=== PATIENT | male | born 1970 | race Caucasian/White ===

== ENCOUNTER 2021-04-20 11:44 | Emergency (ER) | payer BC ==
--- NOTE | 2021-04-20 12:10 | EDM.PDOC ---
ED HPI GENERAL MEDICAL PROBLEM - General Chief Complaint: Fever Stated Complaint: RUNNING FEVER ALL WEEKEND Time Seen by Provider: 04/20/21 12:05 Source of Information: Reports: Patient History Limitations: Reports: No Limitations - History of Present Illness INITIAL COMMENTS - FREE TEXT/NARRATIVE: HISTORY AND PHYSICAL: History of present illness: Patient is a 50-year-old male who presents to the emergency room with complaints of fever, sinus pressure/headache, decreased appetite, nausea and fatigue over the past 3 to 4 days. states that she had some leftover amoxicillin and has been giving him this over the past 2 days although he has not felt any improvement. Temperature at home has been running to 101 - 103F, has been alternating Tylenol and ibuprofen. Had an infrequent cough with mild shortness of breathe, but feels that has improved. Patient denies any change in vision, syncope or near syncope. Denies any chest pain, back pain or hemoptysis. Denies any abdominal pain, vomiting, diarrhea, constipation or dysuria. Has not noted any blood in urine or stool. Patient has been eating and drinking appropriately. Review of systems: As per history of present illness and below otherwise all systems reviewed and negative. Past medical history: As per history of present illness and as reviewed below otherwise noncontributory. Surgical history: As per history of present illness and as reviewed below otherwise noncontributory. Social history: See social history for further information Family history: As per history of present illness and as reviewed below otherwise noncontributory. Physical exam: General: Well developed and well nourished 50-year-old male. Alert and orientated x 3. Nontoxic in appearance and in no acute distress. Vital signs are stable and have been reviewed by me. Nursing notes were reviewed. HEENT: Atraumatic, normocephalic, pupils equal and reactive bilaterally, negative for conjunctival pallor or scleral icterus, mucous membranes moist, frontal maxillary sinus tenderness bilaterally, TMs normal bilaterally, throat clear, neck supple, nontender, trachea midline. No drooling or trismus noted. No meningeal signs. No hot potato voice noted. Lungs: Clear to auscultation bilaterally. No wheezes, rales, or rhonchi. Chest nontender. Normal work of breathing, no accessory muscles used. Heart: S1S2, regular rate and rhythm without overt murmur, gallops, or rubs. No JVD. No peripheral edema Abdomen: Soft, nondistended, nontender. Normoactive bowel sounds. Negative for masses or costovertebral tenderness. Skin: Intact, warm, dry. No lesions or rashes noted. Hematologic: No petechiae or purpra. Mucosa appropriate color and normal nail bed color and refill. Extremities: Atraumatic, moves all extremities per self without difficulty or deficits, negative for cords or calf pain. Neurovascular unremarkable. Neuro: Awake, alert, oriented. Cranial nerves II through XII unremarkable. Cerebellum unremarkable. Motor and sensory unremarkable throughout. Exam nonfocal. Psychiatric: Mood and affect are appropriate. Normal thought process. Answering questions appropriately. Notes: *This patient was seen and evaluated during the 2019 SARS-CoV-2 novel coronavirus pandemic period. Community viral transmission is ongoing at time of this encounter and the emergency department is operating under pandemic response procedures. Patient is a 50-year-old male who presents to the emergency room with complaints of fever, headache, decreased appetite with nausea and generalized fatigue. has been treating him with some leftover amoxicillin with concerns of him having a sinus infection. She states she has been giving him Tylenol and ibuprofen to help manage his fevers but has been unsuccessful. Patient's phys ical exam is unremarkable Chest x-ray is unremarkable. Labs show mild derangement with likely dehydration. He did receive IV fluids and medications while here. I have talked with the patient about today's findings, in addition to providing specific details for plan of care. Reassessment at the time of disposition demonstrates that the patient is in no acute distress. The patient is stable fo r discharge, counseling was provided and we discussed in great detail signs and symptoms that would prompt them to return to the Emergency Department. Medication, follow up and supportive care measures were reviewed and discussed. Voices understanding and is agreeable to plan of care. Denies any further questions or concerns at this time. Diagnostics: CBC, CMP, COVID, UA (cancelled) Therapeutics: IV fluids, Toradol, Zofran Prescription: Augmentin Impression: Sinusitis Viral illness Plan: 1. You were evaluated today on an emergent basis. Please take the antibiotic as prescribed. Small frequent sips of fluids to prevent dehydration. BRAT diet (bananas, rice, applesauce, toast) and advance as tolerated. 2. You can alternate Tylenol and ibuprofen as needed for pain and fever management. 3. We encourage you to follow up with your primary care provider and/or recommended specialist in the next few days for re-evaluation and further care/management. 4. If your symptoms should worsen, new symptoms develop or any of the signs and symptoms we discussed should arise please return to the emergency room or call 911 (if needed). Definitive disposition and diagnosis as appropriate pending reevaluation and review of above. general Pain Score (Numeric/FACES): 5 - Related Data Allergies Allergy/AdvReac Type Severity Reaction Status Date / Time No Known Allergies Allergy Verified 04/20/21 12:42 Home Meds: Home Meds Amoxicillin/Clavulanate K [Augmentin 875-125 MG] 1 tab PO BID 10 Days #20 tablet 04/20/21 [Rx] Ondansetron [Zofran ODT] 4 mg PO Q6H PRN #8 tab.dis 04/20/21 [Rx] ED ROS GENERAL - Review of Systems Review Of Systems: Comprehensive ROS is negative, except as noted in HPI. ED EXAM, GENERAL - Physical Exam Exam: See Below (See dictation) Course - Vital Signs Last Recorded V/S: Last Vital Signs Temp 100.5 F 04/20/21 12:30 Pulse 75 04/20/21 14:36 Resp 20 04/20/21 14:36 BP 128/72 04/20/21 14:36 Pulse Ox 95 04/20/21 14:36 - Orders/Labs/Meds Orders: Active Orders 24 hr Category Date Time Status CULTURE BLOOD [BC] Stat Lab 04/20/21 12:40 Received CULTURE BLOOD [BC] Stat Lab 04/20/21 13:04 Received Blood Culture x2 Reflex Set [OM.PC] Stat Oth 04/20/21 12:26 Ordered Labs: Laboratory Tests 04/20/21 04/20/21 04/20/21 Range/Units 12:28 12:40 12:40 WBC (4.0-11.0) K/uL RBC (4.50-5.90) M/uL Hgb (13.0-17.0) g/dL Hct (38.0-50.0) % MCV (80.0-98.0) fL MCH (27.0-32.0) pg MCHC (31.0-37.0) g/dL RDW Std Deviation (28.0-62.0) fl RDW Coeff of Ruiz (11.0-15.0) % Plt Count (150-400) K/uL MPV (7.40-12.00) fL Neut % (Auto) (48.0-80.0) % Lymph % (Auto) (16.0-40.0) % Cameron % (Auto) (0.0-15.0) % Eos % (Auto) (0.0-7.0) % Baso % (Auto) (0.0-1.5) % Neut # (Auto) (1.4-5.7) K/uL Lymph # (Auto) (0.6-2.4) K/uL Cameron # (Auto) (0.0-0.8) K/uL Eos # (Auto) (0.0-0.7) K/uL Baso # (Auto) (0.0-0.1) K/uL Nucleated RBC % /100WBC Nucleated RBCs # K/uL Sodium 134 L (136-148) mmol/L Potassium 3.7 (3.5-5.1) mmol/L Chloride 97 L (98-107) mmol/L Carbon Dioxide 25.2 (21.0-32.0) mmol/L BUN 14 (7.0-18.0) mg/dL Creatinine 1.4 H (0.8-1.3) mg/dL Est Cr Clr Drug Dosing 71.34 mL/min Estimated GFR (MDRD) 53.6 ml/min Glucose 190 H (74-106) mg/dL Lactic Acid 2.0 (0.4-2.0) mmol/L Calcium 8.1 L (8.5-10.1) mg/dL Total Bilirubin 1.2 H (0.2-1.0) mg/dL AST 17 (15-37) IU/L ALT 29 (14-63) IU/L Alkaline Phosphatase 46 (46-116) U/L Total Protein 7.7 (6.4-8.2) g/dL Albumin 4.2 (3.4-5.0) g/dL Globulin 3.5 (2.6-4.0) g/dL Albumin/Globulin Ratio 1.2 (0.9-1.6) SARS-CoV-2 RNA (SALIMA) NEGATIVE (NEGATIVE) 04/20/21 Range/Units 13:04 WBC 13.33 H (4.0-11.0) K/uL RBC 5.18 (4.50-5.90) M/uL Hgb 18.0 H (13.0-17.0) g/dL Hct 50.6 H (38.0-50.0) % MCV 97.7 (80.0-98.0) fL MCH 34.7 H (27.0-32.0) pg MCHC 35.6 (31.0-37.0) g/dL RDW Std Deviation 45.6 (28.0-62.0) fl RDW Coeff of Ruiz 13 (11.0-15.0) % Plt Count 159 (150-400) K/uL MPV 11.80 (7.40-12.00) fL Neut % (Auto) 81.9 H (48.0-80.0) % Lymph % (Auto) 7.8 L (16.0-40.0) % Cameron % (Auto) 10.1 (0.0-15.0) % Eos % (Auto) 0.0 (0.0-7.0) % Baso % (Auto) 0.2 (0.0-1.5) % Neut # (Auto) 10.9 H (1.4-5.7) K/uL Lymph # (Auto) 1.0 (0.6-2.4) K/uL Cameron # (Auto) 1.4 H (0.0-0.8) K/uL Eos # (Auto) 0.0 (0.0-0.7) K/uL Baso # (Auto) 0.0 (0.0-0.1) K/uL Nucleated RBC % 0.0 /100WBC Nucleated RBCs # 0 K/uL Sodium (136-148) mmol/L Potassium (3.5-5.1) mmol/L Chloride (98-107) mmol/L Carbon Dioxide (21.0-32.0) mmol/L BUN (7.0-18.0) mg/dL Creatinine (0.8-1.3) mg/dL Est Cr Clr Drug Dosing mL/min Estimated GFR (MDRD) ml/min Glucose (74-106) mg/dL Lactic Acid (0.4-2.0) mmol/L Calcium (8.5-10.1) mg/dL Total Bilirubin (0.2-1.0) mg/dL AST (15-37) IU/L ALT (14-63) IU/L Alkaline Phosphatase (46-116) U/L Total Protein (6.4-8.2) g/dL Albumin (3.4-5.0) g/dL Globulin (2.6-4.0) g/dL Albumin/Globulin Ratio (0.9-1.6) SARS-CoV-2 RNA (SALIMA) (NEGATIVE) Meds: Medications Discontinued Medications Generic Name Dose Route Start Last Admin Trade Name Freq PRN Reason Stop Dose Admin Sodium Chloride 1,000 mls @ 999 mls/hr 04/20/21 12:29 04/20/21 13:25 Normal Saline IV 04/20/21 13:29 999 mls/hr STAT ONE Administration Ketorolac Tromethamine 30 mg 04/20/21 12:29 04/20/21 13:25 Ketorolac 30 Mg/Ml Sdv IVPUSH 04/20/21 12:30 30 mg ONETIME ONE Administration Lorazepam 1 mg 04/20/21 14:11 04/20/21 14:38 Lorazepam 1 Mg Tab PO 04/20/21 14:12 Not Given ONETIME ONE Ondansetron HCl 4 mg 04/20/21 12:29 04/20/21 13:25 Ondansetron 4 Mg/2 Ml Sdv IVPUSH 04/20/21 12:30 4 mg ONETIME ONE Administration Departure - Departure Time of Disposition: 14:19 Disposition: Home, Self-Care 01 Clinical Impression: Viral illness Sinusitis Qualifiers: Sinusitis location: maxillary Chronicity: acute Recurrence: non-recurrent Qualified Code(s): J01.00 - Acute maxillary sinusitis, unspecified - Discharge Information Prescriptions: Amoxicillin/Clavulanate K [Augmentin 875-125 MG] 1 tab PO BID 10 Days #20 tablet Ondansetron [Zofran ODT] 4 mg PO Q6H PRN #8 tab.dis PRN Reason: Nausea Instructions: Sinusitis, Adult, [id number] Referrals: PCP,Not In Area [Primary Care Provider] - Forms: ED Department Discharge Additional Instructions: The following information is given to patients seen in the emergency department who are being discharged to home. This information is to outline your options for follow-up care. We provide all patients seen in our emergency department with a follow-up referral. The need for follow-up, as well as the timing and circumstances, are variable depending upon the specifics of your emergency department visit. If you don't have a primary care physician on staff, we will provide you with a referral. We always advise you to contact your personal physician following an emergency department visit to inform them of the circumstance of the visit and for follow-up with them and/or the need for any referrals to a consulting specialist. The emergency department will also refer you to a specialist when appropriate. This referral assures that you have the opportunity for follow-up care with a specialist. All of these measure are taken in an effort to provide you with optimal care, which includes your follow-up. Under all circumstances we always encourage you to contact your private physician who remains a resource for coordinating your care. When calling for follow-up care, please make the office aware that this follow-up is from your recent emergency room visit. If for any reason you are refused follow-up, please contact the [facility] Emergency Department at and asked to speak to the emergency department charge nurse. [facility] [address] [place] [address] [place] [address] Thank you for choosing the [facility] emergency department in [place] for your medical needs today. It was a pleasure caring for you. Today you were seen in the emergency department for fevers. 1. You were evaluated today on an emergent basis. Please take the antibiotic as prescribed. Small frequent sips of fluids to prevent dehydration. BRAT diet (bananas, rice, applesauce, toast) and advance as tolerated. 2. You can alternate Tylenol and ibuprofen as needed for pain and fever management. 3. We encourage you to follow up with your primary care provider and/or recom mended specialist in the next few days for re-evaluation and further care/management. 4. If your symptoms should worsen, new symptoms develop or any of the signs and symptoms we discussed should arise please return to the emergency room or call 911 (if needed). Sepsis Event Note (ED) - Focused Exam Vital Signs: Vital Signs Temp Pulse Resp BP Pulse Ox 04/20/21 14:36 75 20 128/72 95 04/20/21 12:30 100.5 F 83 18 131/86 95 - My Orders Last 24 Hours: My Active Orders 04/20/21 12:26 Blood Culture x2 Reflex Set [OM.PC] Stat 04/20/21 12:40 CULTURE BLOOD [BC] Stat 04/20/21 13:04 CULTURE BLOOD [BC] Stat - Assessment/Plan Last 24 Hours: My Active Orders 04/20/21 12:26 Blood Culture x2 Reflex Set [OM.PC] Stat 04/20/21 12:40 CULTURE BLOOD [BC] Stat 04/20/21 13:04 CULTURE BLOOD [BC] Stat
[2021-04-20] MEDS ORDERED: Ondansetron 4 MG/2 ML SDV IVPUSH ONE (12:29)
[2021-04-20] MEDS ORDERED: Sodium Chloride 0.9% 1,000 ML IV ONE (12:29)
[2021-04-20] MEDS ORDERED: Ketorolac 30 MG/ML SDV IVPUSH ONE (12:29)
--- NOTE | 2021-04-20 12:52 | PCM.SN.2 ---
- Free Text/Narrative Note: EKG done 04/20/2021 at 12:47 PM shows sinus rhythm heart rate 79 AR interval 151 QT duration 422 axis -21 there is borderline or probable left atrial enlargement. QRS is otherwise normal and ST and T are normal impression no acute injury
[2021-04-20 13:08] LABS: CARBON DIOXIDE,CO2 25.2 mmol/L (21.0-32.0); POTASSIUM,K 3.7 mmol/L (3.5-5.1)
[2021-04-20] MEDS ORDERED: LORazepam 1 MG Tab PO ONE (14:11)
--- NOTE | 2021-04-20 14:42 | CR ---
INDICATION: Fever and cough COMPARISON: none TECHNIQUE: Portable chest performed at 1:35 p.m. FINDINGS: The lungs are clear. The heart, mediastinum and pulmonary vessels are of normal size. There is no evidence of pleural fluid. IMPRESSION: Negative chest. Dictated by Prosper Waggoner MD @ 04/20/2021 2:41:[address] Prosper Waggoner @ Apr 20 2021 2:41PM
== END 2021-04-20 14:41 | disposition home or self-care (01) ==
LOC: MW.ED 11:44
DX: J32.9 Chronic sinusitis, unspecified (principal); B34.9 Viral infection, unspecified; Z20.822 Contact with and (suspected) exposure to COVID-19
CPT/HCPCS: 36415; 71045; 80053; 83605; 85025; 87040; 87635; 93005; 96374; 96375; 99284; J1885; J2405; J7030; U0002